=== PATIENT | male | born 1930 | race Caucasian/White ===

== ENCOUNTER 2016-08-16 12:14 | Inpatient (IN) | payer MEDICARE ==
[~2016-08-16] VITALS: Ht 175.3 cm; Wt 107.0 kg
[~2016-08-16 12:14] MED LIST: BIMA2.5D EACHEYE; BRIM5DRO3 EACHEYE; DORZ10DR3 EACHEYE; FURO-68 PO; FURO40TA4 PO; HYDR-2666 PO; ISOS30TA4 PO; LATA2.5D3 EACHEYE; LISI-338 PO; METF500T4 PO; PIOG45TA PO; PIOG45TA19 PO; POTA20TA12 PO; POTA20TA4 PO; SIMV40TA3 PO; TAMS0.4C2 PO; VIT1CAPS11 PO
[2016-08-16 14:22] LABS: BASO # 0.1 x10^3/uL (0.0-0.2); BASO % 1 % (0-3); EOS % 2 % (0-3); HEMATOCRIT 41.6 % (39.0-53.0); HEMOGLOBIN 13.8 g/dL (13.0-17.5); LYMPH # 1.1 x10^3/uL (1.0-4.8); LYMPH % 14 % (24-48); MEAN CORPUSCULAR HEMOGLOBIN 30 pg (25-35); MEAN CORPUSCULAR HGB CONC 33 g/dL (31-37); MEAN CORPUSCULAR VOLUME 91 fL (79-100); MONO % 10 % (0-9); NEUT % 73 % (31-73); PLATELET COUNT 205 x10^3/uL (140-400); RED BLOOD COUNT 4.59 x10^6/uL (4.30-5.70); RED CELL DISTRIBUTION WIDTH 14.5 % (11.5-14.5); WHITE BLOOD COUNT 7.9 x10^3/uL (4.0-11.0)
[2016-08-16 14:35] LABS: CALCIUM 9.1 mg/dL (8.5-10.1); CREATININE 1.3 mg/dL (0.7-1.3); GFR 52.2
--- NOTE | 2016-08-16 14:36 | RAD ---
Indication chest pain and shortness of air. A single view of the chest was obtained. Comparison is made to an examination 11/10/2015. There is unchanged cardiomegaly. There is no gross congestive heart failure. A focal infiltrate is not seen. Bipolar cardiac pacing device is noted. A significant change compared to the previous exam is not seen. IMPRESSION: Stable cardiomegaly. No acute finding or significant change
[2016-08-16] MEDS ORDERED: FUROSEMIDE 40 MG/4 ML VIAL IVP ONE (15:15)
[2016-08-16 15:20] VITALS: BP 152/88
--- NOTE | 2016-08-16 15:53 | PHYS DOC ---
Past Medical History Past Medical History: CHF, Diabetes-Type II, High Cholesterol Past Surgical History: Cholecystectomy, Other Additional Past Surgical Histo: KNEE REPLACEMENT Alcohol Use: Occasionally Drug Use: None Adult General Chief Complaint Chief Complaint: SHORTNESS OF BREATH [facility] HPI 85-year-old male resents with significant dyspnea that is worse in the last 3 weeks but acutely worsened today. Patient does have history of congestive heart failure. He states his shortness of breath is worse with exertional activities and not at rest. He denies any chest pain. Patient is normally on supplemental oxygen and requiring more O2 than usual today. Upon my initial assessment, the patient is in no acute distress and speaking in complete sentences. Does state he follows up with Dr. Meyers. Patient did have a pacemaker placed a months ago and states he been feeling somewhat better since that time until the last three weeks. Pt takes 80 mg of Lasix daily as well as propafenone. Review of Systems Review of Systems Constitutional: Denies fever or chills [] Eyes: Denies change in visual acuity, redness, or eye pain [] HENT: Denies nasal congestion or sore throat [] Respiratory: Denies cough, has shortness of breath [] Cardiovascular: No additional information not addressed in HPI [] GI: Denies abdominal pain, nausea, vomiting, bloody stools or diarrhea [] : Denies dysuria or hematuria [] Musculoskeletal: Denies back pain or joint pain [] Integument: Denies rash or skin lesions [] Neurologic: Denies headache, focal weakness or sensory changes [] Endocrine: Denies polyuria or polydipsia [] Allergies Allergies Allergies Coded Allergies Type Severity Reaction Last Updated Verified No Known Allergies Allergy Unknown 06/08/15 Yes Physical Exam Physical Exam Constitutional: Well developed, well nourished, no acute distress, non-toxic appearance. [] HENT: Normocephalic, atraumatic, bilateral external ears normal, oropharynx moist, no oral exudates, nose normal. [] Eyes: PERRLA, EOMI, conjunctiva normal, no discharge. [] Neck: Normal range of motion, no tenderness, supple, no stridor. [] Cardiovascular:Heart rate regular rhythm, no murmur [] Lungs & Thorax: Diminished bilaterally with no acute respiratory distress [] Abdomen: Bowel sounds normal, soft, no tenderness, no masses, no pulsatile masses. [] Skin: Warm, dry, no erythema, no rash. [] Back: No tenderness, no CVA tenderness. [] Extremities: No tenderness, no cyanosis, no clubbing, ROM intact, no edema. [] Neurologic: Alert and oriented X 3, normal motor function, normal sensory function, no focal deficits noted. [] Psychologic: Affect normal, judgement normal, mood normal. [] Current Patient Data Vital Signs Vital Signs Date Time Temp Pulse Resp B/P Pulse Ox O2 Delivery O2 Flow Rate FiO2 08/16/16 14:30 86 24 126/84 99 Room Air 08/16/16 13:00 97.5 97.5 Lab Values Laboratory Tests Test 08/16/16 14:00 White Blood Count 7.9x10^3/uL (4.0-11.0) Red Blood Count 4.59x10^6/uL (4.30-5.70) Hemoglobin 13.8g/dL (13.0-17.5) Hematocrit 41.6% (39.0-53.0) Mean Corpuscular Volume 91fL (79-100) Mean Corpuscular Hemoglobin 30pg (25-35) Mean Corpuscular Hemoglobin Concent 33g/dL (31-37) Red Cell Distribution Width 14.5% (11.5-14.5) Platelet Count 205x10^3/uL (140-400) Neutrophils (%) (Auto) 73% (31-73) Lymphocytes (%) (Auto) 14% (24-48) L Monocytes (%) (Auto) 10% (0-9) H Eosinophils (%) (Auto) 2% (0-3) Basophils (%) (Auto) 1% (0-3) Neutrophils # (Auto) 5.7x10^3uL (1.8-7.7) Lymphocytes # (Auto) 1.1x10^3/uL (1.0-4.8) Monocytes # (Auto) 0.8x10^3/uL (0.0-1.1) Eosinophils # (Auto) 0.1x10^3/uL (0.0-0.7) Basophils # (Auto) 0.1x10^3/uL (0.0-0.2) Sodium Level 141mmol/L (136-145) Potassium Level 4.0mmol/L (3.5-5.1) Chloride Level 102mmol/L (98-107) Carbon Dioxide Level 30mmol/L (21-32) Anion Gap 9 (6-14) Blood Urea Nitrogen 19mg/dL (8-26) Creatinine 1.3mg/dL (0.7-1.3) Estimated GFR (Cockcroft-Gault) 52.2 Glucose Level 140mg/dL (70-99) H Calcium Level 9.1mg/dL (8.5-10.1) Troponin I Quantitative 0.050ng/mL (0.000-0.055) BW-Ksw-Q-Type Natriuretic Peptide 3754pg/mL (0-449) H Laboratory Tests 08/16/16 14:00 Laboratory Tests 08/16/16 14:00 EKG EKG EKG is interpreted by me shows a sinus rhythm with rate 82 bpm. There does appear to be a intraventricular block. There are pacer spikes before every QRS. This EKG appears unchanged from prior EKGs and is consistent with a paced rhythm. Radiology/Procedures Radiology/Procedures One view chest as interpreted by me does not reveal an acute cardiopulmonary process. Course & Med Decision Making Course & Med Decision Making Pertinent Labs and Imaging studies reviewed. (See chart for details) This 85 yo female with ongoing shortness of breath is likely having a CHF exacerbation as demonstrated by a BNP of 3700 and he has prior history of it. His EKG and chest x-ray did not reveal any acute abnormalities. Patient was admitted to the hospitalist, Dr. Mcclure, and given a dose of IV Lasix. His case is also discussed with the spiritual care coordinator, Dr. Meyers, who agreed to see the patient in consultation at bedside. Dragon Disclaimer Dragon Disclaimer This electronic medical record was generated, in whole or in part, using a voice recognition dictation system. Departure Departure Impression: Primary Impression: CHF (congestive heart failure) Additional Impression: Dyspnea Disposition: 09 ADMITTED INPATIENT Admitting Physician: Michelle Mcclure Condition: STABLE Referrals: MICHELLE MCCLURE MD (PCP) Problem Qualifiers YESICA LOZA DO Aug 16, 2016 15:53
--- NOTE | 2016-08-16 16:20 | ACF ---
Admission Forms Criteria HEART FAILURE: COMMON COMPLICATIONS Clinical Indications for Inpatient Care (Place 'X' for any and all applicable criteria): Ongoing inpatient care may be indicated for heart failure with ANY ONE of the following (1)(2)(3)(4)(5): [ ]I. Ongoing need for care for primary condition requiring frequent therapy adjustments because of changes in cardiac function (eg, drug dosage changes for drugs that are renally metabolized) [ ]II. New-onset heart failure [ ]III. Heart failure with decreased urine output not responsive to attempts to optimize volume status [ ]IV. Acute cardiac ischemia causing or associated with failure [X]V. Complications of heart failure, including ANY ONE of the following: [ ]a) Pericardial effusion [ ]b) Symptomatic pleural effusion [ ]c) O2 saturation <90% or PO2 < 60 mm Hg (8.0 kPa) on room air or require baseline supplemental O2 [ ]d) Tachypnea [X]e) Dyspnea [ ]f) Syncope [ ]g) Change in mental status [ ]h) Acute renal insufficiency that is severe (reduction of more than 50% in estimated glomerular filtration rate from baseline) or progressive reduction of more than 25% in estimated glomerular filtration rate from baseline, with creatinine continuing to rise) [ ]i) Hemodynamic instability [ ]j) Anasarca [ ]k) Clinically significant metabolic abnormalities due to heart failure (eg, new-onset metabolic acidosis) Extended stay beyond goal length of stay for primary condition may be needed until ALL of the following are present(1)(3): [ ]a) Stable and effective diuretic regimen established (or patient on stable dialysis regimen if in chronic renal failure) [ ]b) Breathing comfortably at rest [ ]c) Saturation of arterial oxygen greater than 90% or at acceptable baseline [ ]d) Pulmonary edema absent or improved [ ]e) Hemodynamic stability [ ]f) Volume status acceptable on oral medication [ ]g) Peripheral or sacral edema absent or improved [ ]h) Renal function stable and manageable at a lower level of care [ ]i) Complications (eg, pleural effusion) resolved or manageable at a lower level of care [ ]j) Patient or caregiver has received written discharge instructions or educational material addressing activity level, diet, discharge medications, follow-up appointment, weight monitoring, and what to do if symptoms worsen The original [employer] content created by [employer] has been revised. The portions of the content which have been revised are identified through the use of italic text or in bold, and [facility] has neither reviewed nor approved the modified material.All other unmodified content is copyright [facility]. Please see references footnoted in the original [facility] edition 2016 Admission Criteria Met?: Yes QASIM MAYO Aug 16, 2016 16:20
[2016-08-16] MEDS ORDERED: FURO80TA3 PO (16:28)
[2016-08-16] MEDS ORDERED: DOCU250C PO (16:28)
[2016-08-16] MEDS ORDERED: PROP150T2 PO (16:28)
--- NOTE | 2016-08-16 17:17 | PDOC2 ---
CONSULT Date of Consult Date of Consult DATE: 08/16/16 TIME: 17:12 Reason for Consult Reason for Consult: Dyspnea Referring Physician Referring Physician: Dr. Castillo Identification/Chief Complaint Chief Complaint Dyspnea History of Present Illness Reason for Visit: Patient is a 85 year old gentleman with valvular heart disease and Cardiomyopathy with a LV EF 23%. He comes in with about 3 weeks of progressive dyspnea and increasing leg edema. No chest pains. No palpitations. Past Medical History Cardiovascular: CAD, CHF, Hyperlipidemia, Aortic stenosis, Valve insufficiency , Pulmonary hypertension, Other (pacemaker ) GI: Other Renal/: Benign prostatic enlarg. Endocrine: Diabetes Past Surgical History Past Surgical History: Cholecystectomy, Other Family History Family History: No Significant Current Problem List Problem List Problems Medical Problems: (1) CHF (congestive heart failure) Status: Acute (2) Dyspnea Status: Acute Current Medications Current Medications Current Medications Furosemide (Lasix) 40 mg 1X ONCE IVP Last administered on 08/16/16t 15:33; Start 08/16/16 at 15:15; Stop 08/16/16 at 15:16; Status DC Active Scripts Active Reported Docusate Sodium 250 Mg Capsule 200 Mg PO DAILY Propafenone Hcl 150 Mg Tablet 75 Mg PO BID Furosemide 80 Mg Tablet 80 Mg PO DAILY Lumigan (Bimatoprost) 2.5 Ml Drops 1 Drop EACHEYE QHS Potassium Chloride 20 Meq Tab.er.prt 1 Tab PO BID Simvastatin 40 Mg Tablet 40 Mg PO HS Dorzolamide Hcl 10 Ml Drops 1 Drop EACHEYE BID Alphagan P (Brimonidine Tartrate) 5 Ml Drops 1 Drop EACHEYE BID Allergies Allergies: Coded Allergies: No Known Allergies (Verified Allergy, Unknown, 06/08/15) Physical Exam General: Alert, Oriented X3, Cooperative HEENT: PERRLA Lungs: Other (basal rales , mild wheezing) Heart: Regular rate, Other (S1,S2 +S3, No change in murmur) Abdomen: Normal bowel sounds Extremities: Other (++ edema) Vitals VITALS Vital Signs Date Time Temp Pulse Resp B/P Pulse Ox O2 Delivery O2 Flow Rate FiO2 08/16/16 15:20 97.8 81 16 152/88 99 Room Air 97.8 Labs Labs Laboratory Tests Test 08/16/16 14:00 White Blood Count 7.9x10^3/uL (4.0-11.0) Red Blood Count 4.59x10^6/uL (4.30-5.70) Hemoglobin 13.8g/dL (13.0-17.5) Hematocrit 41.6% (39.0-53.0) Mean Corpuscular Volume 91fL (79-100) Mean Corpuscular Hemoglobin 30pg (25-35) Mean Corpuscular Hemoglobin Concent 33g/dL (31-37) Red Cell Distribution Width 14.5% (11.5-14.5) Platelet Count 205x10^3/uL (140-400) Neutrophils (%) (Auto) 73% (31-73) Lymphocytes (%) (Auto) 14% (24-48) Monocytes (%) (Auto) 10% (0-9) Eosinophils (%) (Auto) 2% (0-3) Basophils (%) (Auto) 1% (0-3) Neutrophils # (Auto) 5.7x10^3uL (1.8-7.7) Lymphocytes # (Auto) 1.1x10^3/uL (1.0-4.8) Monocytes # (Auto) 0.8x10^3/uL (0.0-1.1) Eosinophils # (Auto) 0.1x10^3/uL (0.0-0.7) Basophils # (Auto) 0.1x10^3/uL (0.0-0.2) Sodium Level 141mmol/L (136-145) Potassium Level 4.0mmol/L (3.5-5.1) Chloride Level 102mmol/L (98-107) Carbon Dioxide Level 30mmol/L (21-32) Anion Gap 9 (6-14) Blood Urea Nitrogen 19mg/dL (8-26) Creatinine 1.3mg/dL (0.7-1.3) Estimated GFR (Cockcroft-Gault) 52.2 Glucose Level 140mg/dL (70-99) Calcium Level 9.1mg/dL (8.5-10.1) Troponin I Quantitative 0.050ng/mL (0.000-0.055) MS-Irt-M-Type Natriuretic Peptide 3754pg/mL (0-449) Laboratory Tests Test 08/16/16 14:00 White Blood Count 7.9x10^3/uL (4.0-11.0) Red Blood Count 4.59x10^6/uL (4.30-5.70) Hemoglobin 13.8g/dL (13.0-17.5) Hematocrit 41.6% (39.0-53.0) Mean Corpuscular Volume 91fL (79-100) Mean Corpuscular Hemoglobin 30pg (25-35) Mean Corpuscular Hemoglobin Concent 33g/dL (31-37) Red Cell Distribution Width 14.5% (11.5-14.5) Platelet Count 205x10^3/uL (140-400) Neutrophils (%) (Auto) 73% (31-73) Lymphocytes (%) (Auto) 14% (24-48) Monocytes (%) (Auto) 10% (0-9) Eosinophils (%) (Auto) 2% (0-3) Basophils (%) (Auto) 1% (0-3) Neutrophils # (Auto) 5.7x10^3uL (1.8-7.7) Lymphocytes # (Auto) 1.1x10^3/uL (1.0-4.8) Monocytes # (Auto) 0.8x10^3/uL (0.0-1.1) Eosinophils # (Auto) 0.1x10^3/uL (0.0-0.7) Basophils # (Auto) 0.1x10^3/uL (0.0-0.2) Sodium Level 141mmol/L (136-145) Potassium Level 4.0mmol/L (3.5-5.1) Chloride Level 102mmol/L (98-107) Carbon Dioxide Level 30mmol/L (21-32) Anion Gap 9 (6-14) Blood Urea Nitrogen 19mg/dL (8-26) Creatinine 1.3mg/dL (0.7-1.3) Estimated GFR (Cockcroft-Gault) 52.2 Glucose Level 140mg/dL (70-99) Calcium Level 9.1mg/dL (8.5-10.1) Troponin I Quantitative 0.050ng/mL (0.000-0.055) HR-Dat-U-Type Natriuretic Peptide 3754pg/mL (0-449) Assessment/Plan Assessment/Plan Patient with acute CHF secondary to systolic dysfunction and valvular disease. Recommend diuresis and a dobutamine drip. Will get an echocardiogram in am to evaluate changes in LV function. Thank you very much for allowing me to participate in the care of this patient. ANTONIA ROBERT MD Aug 16, 2016 17:17
--- NOTE | 2016-08-16 17:36 | EKG ---
[facility] [address] [place] [address] Test Date: 2016-08-16 Test Time: 14:47:56 Pat Name: LEONIDAS ROBERT Department: Room: 248 1 Gender: Male Practice Architect: : [id number] Requested By: YESICA LOZA Order Number: [id number] Reading MD: Mikala Thomas Measurements Intervals [place] Rate: 94 P: IA: QRS: -93 QRSD: 220 T: 55 QT: 416 QTc: 520 Interpretive Statements SINUS RHYTHM ABNORMAL RIGHT SUPERIOR AXIS DEVIATION NON SPECIFIC INTRAVENTRICULAR BLOCK QRS(T) CONTOUR ABNORMALITY CONSISTENT WITH ANTEROSEPTAL INFARCT POSSIBLY RECENT CONSISTENT WITH INFERIOR INFARCT PROBABLY OLD ABNORMAL ECG Electronically Signed On 08-19-2016 18:12:07 ADJUNCT FACULTY by Mikala Thomas
[2016-08-16] MEDS: POTASSIUM CHLORIDE 20 MEQ TABLET.ER. PO SCH (17:45)
[2016-08-16] MEDS: DOBUTAMINE 500MG/250ML PREMIX 250 ML IV PRN (17:58)
[2016-08-16 19:55] VITALS: BP 111/52
[2016-08-16 21:00] VITALS: BP 109/52
[2016-08-16] MEDS: LATANOPROST 0.005% OPHTH SOLUTION 2.5ML BOTTLE. OU SCH (21:00)
[2016-08-16] MEDS: DORZOLAMIDE 2% OPHTH SOLUTION 10ML BOTTLE. OU SCH (21:00)
[2016-08-16] MEDS: BRIMONIDINE 0.2% OPHTH SOLUTION 5ML BOTTLE. OU SCH (21:00)
[2016-08-16] MEDS ORDERED: FUROSEMIDE 40 MG/4 ML VIAL IVP SCH (21:00)
[2016-08-16] MEDS: PROPAFENONE 150 MG TABLET. PO SCH (21:05)
[2016-08-16 22:00] VITALS: BP 102/55
[2016-08-16 23:00] VITALS: BP 119/55
[2016-08-16 23:50] VITALS: BP 104/55
[2016-08-17] VITALS (11 sets, daily range): BP systolic 99–128; BP diastolic 53–59
[2016-08-17] MEDS: FUROSEMIDE 40 MG/4 ML VIAL IVP SCH ×2 (08:37→21:08)
[2016-08-17] MEDS: POTASSIUM CHLORIDE 20 MEQ TABLET.ER. PO SCH ×2 (08:38→17:00)
[2016-08-17] MEDS: DOCUSATE SODIUM 100 MG CAPSULE PO SCH (08:38)
[2016-08-17] MEDS: PROPAFENONE 150 MG TABLET. PO SCH ×2 (08:39→21:09)
[2016-08-17] MEDS: BRIMONIDINE 0.2% OPHTH SOLUTION 5ML BOTTLE. OU SCH ×2 (08:45→21:08)
[2016-08-17] MEDS: DORZOLAMIDE 2% OPHTH SOLUTION 10ML BOTTLE. OU SCH ×2 (08:45→21:08)
--- NOTE | 2016-08-17 09:39 | PDOC ---
PROGRESS NOTES Subjective Subjective Patient reports that he is feeling improved today and his shortness of breath is better although he admits he has not been out of bed much. No new cardiac complaints. Objective Objective Vital Signs Date Time Temp Pulse Resp B/P Pulse Ox O2 Delivery O2 Flow Rate FiO2 08/17/16 08:39 92 120/59 08/17/16 08:00 Room Air 08/17/16 07:00 20 97 08/16/16 23:50 97.3 97.3 Intake and Output 08/17/16 07:00 Intake Total 1074 ml Output Total 1275 ml Balance -201 ml Intake Oral 890 ml IV Total 184 ml Output Urine Total 1275 ml Physical Exam Abdomen: Normal bowel sounds Heart: Regular rate, Normal S1, Normal S2, Other (S3 with no change in murmur) Extremities: Other (edema of upper and lower extremities slightly improved, some desquamation of skin on forearms bilaterally) General: Alert, Oriented X3, Cooperative, No acute distress Lungs: Other (mild rales in bases, wheezing slightly improved, CPAP mask in place) Neck: No JVD Neuro: Other (no gross focal deficits) Assessment Assessment Patient admitted for progressive shortness of breath due to acute CHF exacerbation secondary to systolic and valvular dysfunction with EF of 23%. Patient is improving on current therapy. Problems Medical Problems: (1) CHF (congestive heart failure) Status: Acute (2) Dyspnea Status: Acute Plan Plan of Care Will continue with dobutamine drip and oral lasix for now. Will reassess after echo is completed later today. Thank you for including me in the care of this patient. Comment Review of Relevant I have reviewed the following items chantal (where applicable) has been applied. Labs Laboratory Tests Test 08/16/16 14:00 White Blood Count 7.9x10^3/uL (4.0-11.0) Red Blood Count 4.59x10^6/uL (4.30-5.70) Hemoglobin 13.8g/dL (13.0-17.5) Hematocrit 41.6% (39.0-53.0) Mean Corpuscular Volume 91fL (79-100) Mean Corpuscular Hemoglobin 30pg (25-35) Mean Corpuscular Hemoglobin Concent 33g/dL (31-37) Red Cell Distribution Width 14.5% (11.5-14.5) Platelet Count 205x10^3/uL (140-400) Neutrophils (%) (Auto) 73% (31-73) Lymphocytes (%) (Auto) 14% (24-48) Monocytes (%) (Auto) 10% (0-9) Eosinophils (%) (Auto) 2% (0-3) Basophils (%) (Auto) 1% (0-3) Neutrophils # (Auto) 5.7x10^3uL (1.8-7.7) Lymphocytes # (Auto) 1.1x10^3/uL (1.0-4.8) Monocytes # (Auto) 0.8x10^3/uL (0.0-1.1) Eosinophils # (Auto) 0.1x10^3/uL (0.0-0.7) Basophils # (Auto) 0.1x10^3/uL (0.0-0.2) Sodium Level 141mmol/L (136-145) Potassium Level 4.0mmol/L (3.5-5.1) Chloride Level 102mmol/L (98-107) Carbon Dioxide Level 30mmol/L (21-32) Anion Gap 9 (6-14) Blood Urea Nitrogen 19mg/dL (8-26) Creatinine 1.3mg/dL (0.7-1.3) Estimated GFR (Cockcroft-Gault) 52.2 Glucose Level 140mg/dL (70-99) Calcium Level 9.1mg/dL (8.5-10.1) Troponin I Quantitative 0.050ng/mL (0.000-0.055) OZ-Jko-L-Type Natriuretic Peptide 3754pg/mL (0-449) Laboratory Tests Test 08/16/16 14:00 White Blood Count 7.9x10^3/uL (4.0-11.0) Red Blood Count 4.59x10^6/uL (4.30-5.70) Hemoglobin 13.8g/dL (13.0-17.5) Hematocrit 41.6% (39.0-53.0) Mean Corpuscular Volume 91fL (79-100) Mean Corpuscular Hemoglobin 30pg (25-35) Mean Corpuscular Hemoglobin Concent 33g/dL (31-37) Red Cell Distribution Width 14.5% (11.5-14.5) Platelet Count 205x10^3/uL (140-400) Neutrophils (%) (Auto) 73% (31-73) Lymphocytes (%) (Auto) 14% (24-48) Monocytes (%) (Auto) 10% (0-9) Eosinophils (%) (Auto) 2% (0-3) Basophils (%) (Auto) 1% (0-3) Neutrophils # (Auto) 5.7x10^3uL (1.8-7.7) Lymphocytes # (Auto) 1.1x10^3/uL (1.0-4.8) Monocytes # (Auto) 0.8x10^3/uL (0.0-1.1) Eosinophils # (Auto) 0.1x10^3/uL (0.0-0.7) Basophils # (Auto) 0.1x10^3/uL (0.0-0.2) Sodium Level 141mmol/L (136-145) Potassium Level 4.0mmol/L (3.5-5.1) Chloride Level 102mmol/L (98-107) Carbon Dioxide Level 30mmol/L (21-32) Anion Gap 9 (6-14) Blood Urea Nitrogen 19mg/dL (8-26) Creatinine 1.3mg/dL (0.7-1.3) Estimated GFR (Cockcroft-Gault) 52.2 Glucose Level 140mg/dL (70-99) Calcium Level 9.1mg/dL (8.5-10.1) Troponin I Quantitative 0.050ng/mL (0.000-0.055) ZS-Ovc-Z-Type Natriuretic Peptide 3754pg/mL (0-449) Medications Current Medications Furosemide 40 mg 40 mg 1X ONCE IVP Last administered on 08/16/16 15:33; Start 08/16/16 at 15:15; Stop 08/16/16 at 15:16; Status DC Dobutamine HCl/ Dextrose 250 ml @ 0 mls/hr CONT PRN IV SEE I/O RECORD Last administered on 08/16/16 17:58; Start 08/16/16 at 17:15 Furosemide (Lasix) 40 mg Q12HR IVP ; Start 08/16/16 at 21:00; Stop 08/16/16 at 21: 00; Status DC Dorzolamide HCl (Trusopt) 1 drop BID OU Last administered on 08/17/16 08:45; Start 08/16/16 at 21:00 Furosemide (Lasix) 80 mg DAILY PO ; Start 08/20/16 at 09:00 Potassium Chloride (Klor-Con) 20 meq BIDWMEALS PO Last administered on 08:38; Start 08/16/16 at 18:00 Propafenone HCl (Rythmol) 75 mg BID PO Last administered on 08/17/16 08:39; Start 08/16/16 at 21:00 Latanoprost (Xalatan) 1 drop QHS OU Last administered on 08/16/16 21:00; Start 08/16/16 at 21:00 Brimonidine Tartrate (Alphagan) 1 drop BID OU Last administered on 08/17/16 08 :45; Start 08/16/16 at 21:00 Docusate Sodium (Colace) 200 mg DAILY PO Last administered on 08/17/16 08:38; Start 08/17/16 at 09:00 Furosemide (Lasix) 40 mg Q12HR IVP Last administered on 08/17/16 08:37; Start 08/17/16 at 09:00; Stop 08/19/16 at 09:00 Active Scripts Active Reported Docusate Sodium 250 Mg Capsule 200 Mg PO DAILY Propafenone Hcl 150 Mg Tablet 75 Mg PO BID Furosemide 80 Mg Tablet 80 Mg PO DAILY Lumigan (Bimatoprost) 2.5 Ml Drops 1 Drop EACHEYE QHS Potassium Chloride 20 Meq Tab.er.prt 1 Tab PO BID Simvastatin 40 Mg Tablet 40 Mg PO HS Dorzolamide Hcl 10 Ml Drops 1 Drop EACHEYE BID Alphagan P (Brimonidine Tartrate) 5 Ml Drops 1 Drop EACHEYE BID Vitals/I & O Vital Sign - Last 24 Hours 08/16/16 08/16/16 08/16/16 08/16/16 13:00 14:00 14:30 14:52 Temp 97.5 97.5 Pulse 94 76 86 76 Resp 23 21 24 16 B/P 128/74 115/71 126/84 142/79 Pulse Ox 98 96 99 98 O2 Delivery Room Air Room Air Room Air Room Air 08/16/16 08/16/16 08/16/16 08/16/16 15:20 15:30 18:12 19:55 Temp 97.8 98.7 97.8 98.7 Pulse 81 88 Resp 16 23 20 B/P 152/88 123/69 111/52 Pulse Ox 99 97 O2 Delivery Room Air Room Air Room Air Room Air 08/16/16 08/16/16 08/16/16 08/16/16 20:20 21:00 21:05 22:00 Pulse 92 89 84 B/P 109/52 109/52 102/55 O2 Delivery Room Air 08/16/16 08/16/16 08/17/16 08/17/16 23:00 23:50 01:00 02:00 Temp 97.3 97.3 Pulse 76 76 72 88 Resp 20 B/P 119/55 104/55 106/53 120/57 Pulse Ox 98 O2 Delivery Room Air 08/17/16 08/17/16 08/17/16 08/17/16 03:00 04:00 05:00 06:00 Pulse 86 86 86 68 Resp 20 B/P 109/56 128/56 111/55 114/55 O2 Delivery BiPAP/CPAP 08/17/16 08/17/16 08/17/16 07:00 08:00 08:39 Pulse 92 92 Resp 20 B/P 120/59 120/59 Pulse Ox 97 O2 Delivery Room Air Room Air Intake and Output 08/16/16 08/16/16 08/17/16 15:00 23:00 07:00 Intake Total 240 ml 834 ml Output Total 975 ml 300 ml Balance -735 ml 534 ml ANTONIA ROBERT MD Aug 17, 2016 09:39
--- NOTE | 2016-08-17 09:52 | PDOC ---
PROGRESS NOTES Subjective Subjective Pt awake and pleasant. States his SOB has improved some, but continues with exertion. Objective Objective Pt awake and alert. NAD at rest. VSS. Afebrile. Lungs CTA bilat. Resp even and unlabored. Pt currently off of RA, maintaining his sats. Heart with RRR. No murmurs. Rate paced. Vital Signs Date Time Temp Pulse Resp B/P Pulse Ox O2 Delivery O2 Flow Rate FiO2 08/17/16 08:39 92 120/59 08/17/16 08:00 Room Air 08/17/16 07:00 20 97 08/16/16 23:50 97.3 97.3 Intake and Output 08/17/16 07:00 Intake Total 1074 ml Output Total 1275 ml Balance -201 ml Intake Oral 890 ml IV Total 184 ml Output Urine Total 1275 ml Assessment Assessment Problems Medical Problems: (1) CHF (congestive heart failure) Status: Acute (2) Dyspnea Status: Acute Plan Plan of Care 1. CHF with cardiomyopathy -BNP 3754 -CXR: Stable cardiomegaly. No acute finding or significant change -Cardiology consulting -Pt on Dobutamine gtt -Lasix 40mg IVP q12h -O>I -Pacemaker placement 1 month ago. Med hx: DM, Dyslipidemia, BPH, depression. Comment Review of Relevant I have reviewed the following items chantal (where applicable) has been applied. Labs Laboratory Tests Test 08/16/16 14:00 White Blood Count 7.9x10^3/uL (4.0-11.0) Red Blood Count 4.59x10^6/uL (4.30-5.70) Hemoglobin 13.8g/dL (13.0-17.5) Hematocrit 41.6% (39.0-53.0) Mean Corpuscular Volume 91fL (79-100) Mean Corpuscular Hemoglobin 30pg (25-35) Mean Corpuscular Hemoglobin Concent 33g/dL (31-37) Red Cell Distribution Width 14.5% (11.5-14.5) Platelet Count 205x10^3/uL (140-400) Neutrophils (%) (Auto) 73% (31-73) Lymphocytes (%) (Auto) 14% (24-48) Monocytes (%) (Auto) 10% (0-9) Eosinophils (%) (Auto) 2% (0-3) Basophils (%) (Auto) 1% (0-3) Neutrophils # (Auto) 5.7x10^3uL (1.8-7.7) Lymphocytes # (Auto) 1.1x10^3/uL (1.0-4.8) Monocytes # (Auto) 0.8x10^3/uL (0.0-1.1) Eosinophils # (Auto) 0.1x10^3/uL (0.0-0.7) Basophils # (Auto) 0.1x10^3/uL (0.0-0.2) Sodium Level 141mmol/L (136-145) Potassium Level 4.0mmol/L (3.5-5.1) Chloride Level 102mmol/L (98-107) Carbon Dioxide Level 30mmol/L (21-32) Anion Gap 9 (6-14) Blood Urea Nitrogen 19mg/dL (8-26) Creatinine 1.3mg/dL (0.7-1.3) Estimated GFR (Cockcroft-Gault) 52.2 Glucose Level 140mg/dL (70-99) Calcium Level 9.1mg/dL (8.5-10.1) Troponin I Quantitative 0.050ng/mL (0.000-0.055) SW-Owt-W-Type Natriuretic Peptide 3754pg/mL (0-449) Laboratory Tests Test 08/16/16 14:00 White Blood Count 7.9x10^3/uL (4.0-11.0) Red Blood Count 4.59x10^6/uL (4.30-5.70) Hemoglobin 13.8g/dL (13.0-17.5) Hematocrit 41.6% (39.0-53.0) Mean Corpuscular Volume 91fL (79-100) Mean Corpuscular Hemoglobin 30pg (25-35) Mean Corpuscular Hemoglobin Concent 33g/dL (31-37) Red Cell Distribution Width 14.5% (11.5-14.5) Platelet Count 205x10^3/uL (140-400) Neutrophils (%) (Auto) 73% (31-73) Lymphocytes (%) (Auto) 14% (24-48) Monocytes (%) (Auto) 10% (0-9) Eosinophils (%) (Auto) 2% (0-3) Basophils (%) (Auto) 1% (0-3) Neutrophils # (Auto) 5.7x10^3uL (1.8-7.7) Lymphocytes # (Auto) 1.1x10^3/uL (1.0-4.8) Monocytes # (Auto) 0.8x10^3/uL (0.0-1.1) Eosinophils # (Auto) 0.1x10^3/uL (0.0-0.7) Basophils # (Auto) 0.1x10^3/uL (0.0-0.2) Sodium Level 141mmol/L (136-145) Potassium Level 4.0mmol/L (3.5-5.1) Chloride Level 102mmol/L (98-107) Carbon Dioxide Level 30mmol/L (21-32) Anion Gap 9 (6-14) Blood Urea Nitrogen 19mg/dL (8-26) Creatinine 1.3mg/dL (0.7-1.3) Estimated GFR (Cockcroft-Gault) 52.2 Glucose Level 140mg/dL (70-99) Calcium Level 9.1mg/dL (8.5-10.1) Troponin I Quantitative 0.050ng/mL (0.000-0.055) ES-Lno-X-Type Natriuretic Peptide 3754pg/mL (0-449) Medications Current Medications Furosemide 40 mg 40 mg 1X ONCE IVP Last administered on 08/16/16 15:33; Start 08/16/16 at 15:15; Stop 08/16/16 at 15:16; Status DC Dobutamine HCl/ Dextrose 250 ml @ 0 mls/hr CONT PRN IV SEE I/O RECORD Last administered on 08/16/16 17:58; Start 08/16/16 at 17:15 Furosemide (Lasix) 40 mg Q12HR IVP ; Start 08/16/16 at 21:00; Stop 08/16/16 at 21: 00; Status DC Dorzolamide HCl (Trusopt) 1 drop BID OU Last administered on 08/17/16 08:45; Start 08/16/16 at 21:00 Furosemide (Lasix) 80 mg DAILY PO ; Start 08/20/16 at 09:00 Potassium Chloride (Klor-Con) 20 meq BIDWMEALS PO Last administered on 08:38; Start 08/16/16 at 18:00 Propafenone HCl (Rythmol) 75 mg BID PO Last administered on 08/17/16 08:39; Start 08/16/16 at 21:00 Latanoprost (Xalatan) 1 drop QHS OU Last administered on 08/16/16 21:00; Start 08/16/16 at 21:00 Brimonidine Tartrate (Alphagan) 1 drop BID OU Last administered on 08/17/16 08 :45; Start 08/16/16 at 21:00 Docusate Sodium (Colace) 200 mg DAILY PO Last administered on 08/17/16 08:38; Start 08/17/16 at 09:00 Furosemide (Lasix) 40 mg Q12HR IVP Last administered on 08/17/16 08:37; Start 08/17/16 at 09:00; Stop 08/19/16 at 09:00 Active Scripts Active Reported Docusate Sodium 250 Mg Capsule 200 Mg PO DAILY Propafenone Hcl 150 Mg Tablet 75 Mg PO BID Furosemide 80 Mg Tablet 80 Mg PO DAILY Lumigan (Bimatoprost) 2.5 Ml Drops 1 Drop EACHEYE QHS Potassium Chloride 20 Meq Tab.er.prt 1 Tab PO BID Simvastatin 40 Mg Tablet 40 Mg PO HS Dorzolamide Hcl 10 Ml Drops 1 Drop EACHEYE BID Alphagan P (Brimonidine Tartrate) 5 Ml Drops 1 Drop EACHEYE BID Vitals/I & O Vital Sign - Last 24 Hours 08/16/16 08/16/16 08/16/16 08/16/16 13:00 14:00 14:30 14:52 Temp 97.5 97.5 Pulse 94 76 86 76 Resp 23 21 24 16 B/P 128/74 115/71 126/84 142/79 Pulse Ox 98 96 99 98 O2 Delivery Room Air Room Air Room Air Room Air 08/16/16 08/16/16 08/16/16 08/16/16 15:20 15:30 18:12 19:55 Temp 97.8 98.7 97.8 98.7 Pulse 81 88 Resp 16 23 20 B/P 152/88 123/69 111/52 Pulse Ox 99 97 O2 Delivery Room Air Room Air Room Air Room Air 08/16/16 08/16/16 08/16/16 08/16/16 20:20 21:00 21:05 22:00 Pulse 92 89 84 B/P 109/52 109/52 102/55 O2 Delivery Room Air 08/16/16 08/16/16 08/17/16 08/17/16 23:00 23:50 01:00 02:00 Temp 97.3 97.3 Pulse 76 76 72 88 Resp 20 B/P 119/55 104/55 106/53 120/57 Pulse Ox 98 O2 Delivery Room Air 08/17/16 08/17/16 08/17/16 08/17/16 03:00 04:00 05:00 06:00 Pulse 86 86 86 68 Resp 20 B/P 109/56 128/56 111/55 114/55 O2 Delivery BiPAP/CPAP 08/17/16 08/17/16 08/17/16 07:00 08:00 08:39 Pulse 92 92 Resp 20 B/P 120/59 120/59 Pulse Ox 97 O2 Delivery Room Air Room Air Intake and Output 08/16/16 08/16/16 08/17/16 15:00 23:00 07:00 Intake Total 240 ml 834 ml Output Total 975 ml 300 ml Balance -735 ml 534 ml MICHELLE MCCLURE MD Aug 17, 2016 09:52
[2016-08-17] MEDS: DOBUTAMINE 500MG/250ML PREMIX 250 ML IV PRN ×2 (11:49→23:17)
--- NOTE | 2016-08-17 16:51 | CARD ---
APPROVED REPORT EXAM: Two-dimensional and M-mode echocardiogram with Doppler and color Doppler. Other Information Quality : Good INDICATION Congestive Heart Failure Surgery/Intervention Pacemaker: 2D DIMENSIONS RVDd2.7 (2.9-3.5cm)Left Atrium(2D)4.8 (1.6-4.0cm) IVSd1.5 (0.7-1.1cm)Aortic Root(2D)2.9 (2.0-3.7cm) LVDd6.5 (3.9-5.9cm)LVOT Diameter2.3 (1.8-2.4cm) PWd1.2 (0.7-1.1cm)LVDs5.5 (2.5-4.0cm) FS (%) 15.6 %SV69.7 ml LVEF(%)25.0 (>50%) M-Mode DIMENSIONS Aortic Cusp Exc1.24 (1.5-2.0cm) Aortic Valve AoV Peak Nicholas.252.3cm/sAoV VTI46.5cm AO Peak GR.25.5mmHgLVOT VTI 13.58cm AO Mean GR.17mmHgAVA (VTI)1.20cm2 Mitral Valve MV E Aithtrwt46.3cm/sMV DECEL ZNPH592ky MV A Jqutrjhs33.8cm/sE/A Ratio1.3 TDI Lateral E' P. V12.68cm/sMedial E' P. V3.02cm/s E/Lateral E'7.7E/Medial E'32.2 Tricuspid Valve TR P. Devniebm201ne/sRAP RCTWJEGD4ghTb TR Peak Gr.95wqWaPYPK47tlRz Pulmonary Vein S1 Okboagpc36.3cm/sS2 Jvyhmrhf55.43cm/s D2 Drupsbdq00.4cm/sPVa ztzasbfi24ynwd LEFT VENTRICLE The Left Ventricle is mildly dilated. There is mild to moderate concentric left ventricular hypertrop hy. Left ventricle systolic function is moderately to severely impaired. The Ejection Fraction is 25% . There is akinesis in the inferior wall. There is severe global hypokinesis of the left ventricle. S eptal motion consistent with pacemaker activation. RIGHT VENTRICLE The right ventricle is normal size. The right ventricular systolic function is normal. There is a pac emaker lead in the right ventricle. ATRIA The left atrium is mildly dilated. The right atrium is mildly dilated. A pacemaker is seen in the rig ht atrium consistent with history. The interatrial septum is intact with no evidence for an atrial se ptal defect or patent foramen ovale as noted on 2-D or Doppler imaging. AORTIC VALVE The aortic valve is calcified and displays decreased opening. Doppler and Color Flow revealed trace t o mild to moderate aortic regurgitation. The continous wave doppler showed a maximum pressure gradien t of 25 mmHg and mean pressure gradient of 17 mmHg for the aortic valve Doppler and color-flow analys is revealed mild aortic stenosis. MITRAL VALVE The mitral valve is normal in structure There is no evidence of mitral valve prolapse. There is no mi tral valve stenosis. Doppler and Color-flow revealed mild to moderate mitral regurgitation. TRICUSPID VALVE The tricuspid valve is normal in structure Doppler and Color Flow revealed moderate tricuspid regurgi tation. There is severe pulmonary hypertension. The PA pressure was estimated at 64 mmHg. There is no tricuspid valve stenosis. PULMONIC VALVE The pulmonary valve is normal in structure Doppler and Color Flow revealed mild pulmonic valvular reg urgitation. There is no pulmonic valvular stenosis. GREAT VESSELS The aortic root is normal in size. The ascending aorta is normal in size. The IVC was not visualized. PERICARDIAL EFFUSION There is no evidence of significant pericardial effusion. Critical Notification Critical Value: No <Conclusion> Left ventricle systolic function is moderately to severely impaired. The Ejection Fraction is 25%. There is mild to moderate concentric left ventricular hypertrophy. The left atrium is mildly dilated. The right atrium is mildly dilated. A pacemaker is seen in the right atrium consistent with history. The continous wave doppler showed a maximum pressure gradient of 25 mmHg and mean pressure gradient o f 17 mmHg for the aortic valve Doppler and color-flow analysis revealed mild aortic stenosis. Doppler and Color Flow revealed trace to mild to moderate aortic regurgitation. Doppler and Color-flow revealed mild to moderate mitral regurgitation. Doppler and Color Flow revealed moderate tricuspid regurgitation. There is severe pulmonary hypertension. The PA pressure was estimated at 64 mmHg. Doppler and Color Flow revealed mild pulmonic valvular regurgitation. There is no evidence of significant pericardial effusion.
[2016-08-17] MEDS: LATANOPROST 0.005% OPHTH SOLUTION 2.5ML BOTTLE. OU SCH (21:08)
--- NOTE | 2016-08-18 01:34 | HP ---
ADMIT DATE: 08/16/2016 Verónica Hollingsworth APRN dictating on behalf of Dr. Michelle Castillo. CHIEF COMPLAINT AND HISTORY OF PRESENT ILLNESS: This is an 85-year-old male who is well known to me from followup in the office. The patient presented to the Emergency Room on the date of admission with complaints of worsening shortness of breath and increased supplemental O2 demand. The patient stated that his symptoms began about 3 weeks ago and acutely worsened the day he presented to the Emergency Room. Upon examination in the Emergency Room EKG and chest x-ray showed no acute abnormalities. A chest x-ray did show a cardiomegaly which is consistent from previous chest x-rays. The BNP in the ER was 3700. Dr. Meyers, the patient's cardiovascular lab director was consulted and it was felt that the patient be admitted to the hospital. PAST MEDICAL HISTORY: The patient with pacemaker placement for bradycardia one month ago. The patient has known CHF, diabetes type 2, dyslipidemia, BPH, depression, and arthrosclerotic heart disease. PAST SURGICAL HISTORY: Cholecystectomy and a knee replacement. MEDICATIONS: Medications were brought with the patient, listed on the computer and have been addressed. ALLERGIES: The patient has no known drug allergies. SOCIAL HISTORY: The patient is a nonsmoker and drinks alcohol only on occasion socially. He does not use illicit drugs. The patient is and lives at home with his . He is retired from the railroad. FAMILY HISTORY: Noncontributory. REVIEW OF SYSTEMS: As mentioned above. PHYSICAL EXAMINATION: GENERAL: He is a well-developed and well-nourished white male who is in no apparent distress the morning of my examination. VITAL SIGNS: Stable. He is currently on room air, not requiring supplemental O2 and maintaining his sat greater than 92%. HEENT: Head, eyes, ears, nose and throat are unremarkable. He does wear eyeglasses. NECK: Supple, without lymphadenopathy or thyromegaly. CHEST: Clear to auscultation and percussion. HEART: Regular rate and rhythm without S3, S4 or murmur, rate is paced. ABDOMEN: Soft and nontender, without hepatosplenomegaly or masses. EXTREMITIES: Without cyanosis, clubbing. The patient does have 1-2+ pitting edema of the lower extremities. NEUROLOGIC: He is intact. IMPRESSION: Congestive heart failure with underlying cardiomegaly. PLAN: The patient has been admitted. Cardiology has been consulted. The patient has been placed on a dobutamine drip as well as Lasix 40 mg IV push q. 12 hours. We will continue to monitor the patient closely and treat him appropriately during his hospitalization. MICHELLE CASTILLO MD DR: DILLON/bong JOB#: [id number] / [id number]
[2016-08-18 03:23] VITALS: BP 114/57
[2016-08-18 05:20] LABS: CALCIUM 8.6 mg/dL (8.5-10.1); CREATININE 1.1 mg/dL (0.7-1.3); GFR 63.3; POTASSIUM 3.3 mmol/L (3.5-5.1)
[2016-08-18 07:25] VITALS: BP 108/60
[2016-08-18] MEDS: POTASSIUM CHLORIDE 20 MEQ TABLET.ER. PO SCH ×2 (08:42→18:26)
[2016-08-18] MEDS: DOCUSATE SODIUM 100 MG CAPSULE PO SCH (08:43)
[2016-08-18] MEDS: PROPAFENONE 150 MG TABLET. PO SCH ×2 (08:48→20:53)
[2016-08-18] MEDS: BRIMONIDINE 0.2% OPHTH SOLUTION 5ML BOTTLE. OU SCH ×2 (08:48→20:51)
[2016-08-18] MEDS: DORZOLAMIDE 2% OPHTH SOLUTION 10ML BOTTLE. OU SCH ×2 (08:48→20:51)
[2016-08-18] MEDS: FUROSEMIDE 40 MG/4 ML VIAL IVP SCH ×2 (08:56→20:53)
[2016-08-18 11:00] VITALS: BP 144/61
--- NOTE | 2016-08-18 13:27 | PDOC ---
SUBJECTIVE Subjective pleasant, feels better OBJECTIVE Vital Signs Vital Signs Date Time Temp Pulse Resp B/P Pulse Ox O2 Delivery O2 Flow Rate FiO2 08/18/16 11:00 97.7 98 20 144/61 97 Room Air 97.7 08/18/16 08:48 96 108/60 08/18/16 08:00 Room Air 08/18/16 07:25 97.2 92 108/60 97 BiPAP/CPAP 97.2 08/18/16 03:23 97.1 91 22 114/57 97 BiPAP/CPAP 97.1 08/17/16 23:25 97.1 82 22 125/57 95 BiPAP/CPAP 97.1 08/17/16 21:09 90 111/55 08/17/16 19:45 97.7 90 23 111/55 96 Room Air 97.7 08/17/16 19:30 Room Air 08/17/16 15:00 97.8 94 20 99/53 96 Room Air 97.8 I & O Intake and Output 08/18/16 07:00 Intake Total 888 ml Output Total 1540 ml Balance -652 ml Intake Oral 500 ml IV Total 388 ml Output Urine Total 1540 ml PHYSICAL EXAM Physical Exam lungs clear heart irreg abd soft ext no edema ASSESSMENT/PLAN Assessment/Plan 1. CHF with cardiomyopathy better 2. DM, 3.Dyslipidemia, 4. BPH, 5.depression. Problems: COMMENT Lab Laboratory Tests Test 08/18/16 04:20 Sodium Level 142mmol/L (136-145) Potassium Level 3.3mmol/L (3.5-5.1) Chloride Level 104mmol/L (98-107) Carbon Dioxide Level 30mmol/L (21-32) Anion Gap 8 (6-14) Blood Urea Nitrogen 15mg/dL (8-26) Creatinine 1.1mg/dL (0.7-1.3) Estimated GFR (Cockcroft-Gault) 63.3 Glucose Level 129mg/dL (70-99) Calcium Level 8.6mg/dL (8.5-10.1) THERESA PEDRO MD Aug 18, 2016 13:27
[2016-08-18] MEDS ORDERED: POTASSIUM CHLORIDE 20 MEQ TABLET.ER. PO ONE (13:30)
--- NOTE | 2016-08-18 14:03 | PDOC ---
PROGRESS NOTES Subjective Subjective Patient feels much better today. Denies any dyspnea at this time. Objective Objective Vital Signs Date Time Temp Pulse Resp B/P Pulse Ox O2 Delivery O2 Flow Rate FiO2 08/18/16 11:00 97.7 98 20 144/61 97 Room Air 97.7 Intake and Output 08/18/16 07:00 Intake Total 888 ml Output Total 1540 ml Balance -652 ml Intake Oral 500 ml IV Total 388 ml Output Urine Total 1540 ml Physical Exam Physical Exam Lungs moving air better, no Rales. Less edema Assessment Assessment CHF improving. Will wean off the dobutamine today and if patient is doing well may go home in a.m. Problems Medical Problems: (1) CHF (congestive heart failure) Status: Acute (2) Dyspnea Status: Acute Comment Review of Relevant I have reviewed the following items chantal (where applicable) has been applied. Labs Laboratory Tests Test 08/18/16 04:20 Sodium Level 142mmol/L (136-145) Potassium Level 3.3mmol/L (3.5-5.1) Chloride Level 104mmol/L (98-107) Carbon Dioxide Level 30mmol/L (21-32) Anion Gap 8 (6-14) Blood Urea Nitrogen 15mg/dL (8-26) Creatinine 1.1mg/dL (0.7-1.3) Estimated GFR (Cockcroft-Gault) 63.3 Glucose Level 129mg/dL (70-99) Calcium Level 8.6mg/dL (8.5-10.1) Laboratory Tests Test 08/18/16 04:20 Sodium Level 142mmol/L (136-145) Potassium Level 3.3mmol/L (3.5-5.1) Chloride Level 104mmol/L (98-107) Carbon Dioxide Level 30mmol/L (21-32) Anion Gap 8 (6-14) Blood Urea Nitrogen 15mg/dL (8-26) Creatinine 1.1mg/dL (0.7-1.3) Estimated GFR (Cockcroft-Gault) 63.3 Glucose Level 129mg/dL (70-99) Calcium Level 8.6mg/dL (8.5-10.1) Medications Current Medications Furosemide 40 mg 40 mg 1X ONCE IVP Last administered on 08/16/16t 15:33; Start 08/16/16 at 15:15; Stop 08/16/16 at 15:16; Status DC Dobutamine HCl/ Dextrose 250 ml @ 0 mls/hr CONT PRN IV SEE I/O RECORD Last administered on 08/17/16 23:17; Start 08/16/16 at 17:15 Furosemide (Lasix) 40 mg Q12HR IVP ; Start 08/16/16 at 21:00; Stop 08/16/16 at 21: 00; Status DC Dorzolamide HCl (Trusopt) 1 drop BID OU Last administered on 08/18/16 08:48; Start 08/16/16 at 21:00 Furosemide (Lasix) 80 mg DAILY PO ; Start 08/20/16 at 09:00 Potassium Chloride (Klor-Con) 20 meq BIDWMEALS PO Last administered on 08:42; Start 08/16/16 at 18:00 Propafenone HCl (Rythmol) 75 mg BID PO Last administered on 08/18/16 08:48; Start 08/16/16 at 21:00 Latanoprost (Xalatan) 1 drop QHS OU Last administered on 08/17/16 21:08; Start 08/16/16 at 21:00 Brimonidine Tartrate (Alphagan) 1 drop BID OU Last administered on 08/18/16 08 :48; Start 08/16/16 at 21:00 Docusate Sodium (Colace) 200 mg DAILY PO Last administered on 08/18/16 08:43; Start 08/17/16 at 09:00 Furosemide (Lasix) 40 mg Q12HR IVP Last administered on 08/18/16 08:56; Start 08/17/16 at 09:00; Stop 08/19/16 at 09:00 Potassium Chloride (Klor-Con) 40 meq 1X ONCE PO ; Start 08/18/16 at 13:30; Stop 08/18/16 at 13:31; Status DC Active Scripts Active Reported Docusate Sodium 250 Mg Capsule 200 Mg PO DAILY Propafenone Hcl 150 Mg Tablet 75 Mg PO BID Furosemide 80 Mg Tablet 80 Mg PO DAILY Lumigan (Bimatoprost) 2.5 Ml Drops 1 Drop EACHEYE QHS Potassium Chloride 20 Meq Tab.er.prt 1 Tab PO BID Simvastatin 40 Mg Tablet 40 Mg PO HS Dorzolamide Hcl 10 Ml Drops 1 Drop EACHEYE BID Alphagan P (Brimonidine Tartrate) 5 Ml Drops 1 Drop EACHEYE BID Vitals/I & O Vital Sign - Last 24 Hours 08/17/16 08/17/16 08/17/16 08/17/16 15:00 19:30 19:45 21:09 Temp 97.8 97.7 97.8 97.7 Pulse 94 90 90 Resp 20 23 B/P 99/53 111/55 111/55 Pulse Ox 96 96 O2 Delivery Room Air Room Air Room Air 08/17/16 08/18/16 08/18/16 08/18/16 23:25 03:23 07:25 08:00 Temp 97.1 97.1 97.2 97.1 97.1 97.2 Pulse 82 91 92 Resp 22 22 B/P 125/57 114/57 108/60 Pulse Ox 95 97 97 O2 Delivery BiPAP/CPAP BiPAP/CPAP BiPAP/CPAP Room Air 08/18/16 08/18/16 08:48 11:00 Temp 97.7 97.7 Pulse 96 98 Resp 20 B/P 108/60 144/61 Pulse Ox 97 O2 Delivery Room Air Intake and Output 08/17/16 08/17/16 08/18/16 15:00 23:00 07:00 Intake Total 100 ml 394 ml 394 ml Output Total 240 ml 1200 ml 100 ml Balance -140 ml -806 ml 294 ml ANTONIA ROBERT MD Aug 18, 2016 14:03
[2016-08-18 15:00] VITALS: BP 139/79
[2016-08-18 19:10] VITALS: BP 139/79
[2016-08-18] MEDS: LATANOPROST 0.005% OPHTH SOLUTION 2.5ML BOTTLE. OU SCH (20:51)
[2016-08-18 23:25] VITALS: BP 107/69
[2016-08-19 03:30] VITALS: BP 110/52
[2016-08-19 07:35] VITALS: BP 109/66
[2016-08-19] MEDS: POTASSIUM CHLORIDE 20 MEQ TABLET.ER. PO SCH (07:59)
[2016-08-19] MEDS: DOCUSATE SODIUM 100 MG CAPSULE PO SCH (07:59)
[2016-08-19] MEDS: PROPAFENONE 150 MG TABLET. PO SCH (07:59)
[2016-08-19] MEDS: BRIMONIDINE 0.2% OPHTH SOLUTION 5ML BOTTLE. OU SCH (08:00)
[2016-08-19] MEDS: DORZOLAMIDE 2% OPHTH SOLUTION 10ML BOTTLE. OU SCH (08:00)
[2016-08-19] MEDS: FUROSEMIDE 40 MG/4 ML VIAL IVP SCH (08:00)
[2016-08-19 10:30] VITALS: BP 97/56
[2016-08-19] MEDS ORDERED: LISI2.5T PO (11:18)
[2016-08-19] MEDS ORDERED: CARV3.12 PO (11:18)
[2016-08-19] MEDS ORDERED: ASPI-482 PO (11:19)
--- NOTE | 2016-08-19 11:22 | PDOC ---
SUBJECTIVE Subjective feeling much better, off Dobutamine OBJECTIVE Vital Signs Vital Signs Date Time Temp Pulse Resp B/P Pulse Ox O2 Delivery O2 Flow Rate FiO2 08/19/16 08:00 Room Air 08/19/16 07:59 84 108/77 08/19/16 07:35 97.8 75 18 109/66 97 BiPAP/CPAP 97.8 08/19/16 03:30 97.7 77 22 110/52 95 BiPAP/CPAP 97.7 08/18/16 23:25 97.5 93 22 107/69 95 Room Air 97.5 08/18/16 20:53 89 139/79 08/18/16 20:15 Room Air 08/18/16 19:10 97.8 89 26 139/79 95 Room Air 97.8 08/18/16 15:00 97.9 98 20 139/79 98 Room Air 97.9 I & O Intake and Output 08/19/16 07:00 Intake Total 2685 ml Output Total 2800 ml Balance -115 ml Intake Oral 2640 ml IV Total 45 ml Output Urine Total 2800 ml PHYSICAL EXAM Physical Exam lungs clear heart RRR abd soft ext no edema ASSESSMENT/PLAN Assessment/Plan home today, low dose ARBEN/B B locker F/U out pt Problems: THERESA PEDRO MD Aug 19, 2016 11:22
--- NOTE | 2016-08-19 11:25 | PDOC3 ---
Discharge Summary* Date of Admission: Aug 16, 2016 Date of Discharge: Aug 19, 2016 Admitting Diagnosis Problems Medical Problems: (1) CHF (congestive heart failure) Status: Acute (2) Dyspnea Status: Acute Final Diagnosis 1. CHF with cardiomyopathy better 2. DM, 3.Dyslipidemia, 4. BPH, 5.depression. Problems Medical Problems: (1) CHF (congestive heart failure) Status: Acute (2) Dyspnea Status: Acute CONSULTS cardiology Dr. Mosley Procedures CXR Dobutamine drip Brief Hospital Course Mr. Omer is a 85 old [sex] who presented with [ ] Disposition/Orders: D/C to Home CONDITION AT DISCHARGE: Improved Diet: Cardiac Scheduled Aspirin (Aspir 81) 1 TAB PO DAILY Bimatoprost (Lumigan) 1 DROP EACHEYE QHS (Reported) Brimonidine Tartrate (Alphagan P) 1 DROP EACHEYE BID (Reported) Carvedilol (Coreg) 1 TAB PO BID Docusate Sodium (Docusate Sodium) 200 MG PO DAILY (Reported) Dorzolamide Hcl (Dorzolamide Hcl) 1 DROP EACHEYE BID (Reported) Furosemide (Furosemide) 80 MG PO DAILY (Reported) Lisinopril (Lisinopril) 1 TAB PO DAILY Potassium Chloride (Potassium Chloride) 1 TAB PO BID (Reported) Propafenone Hcl (Propafenone Hcl) 75 MG PO BID (Reported) Simvastatin (Simvastatin) 40 MG PO HS (Reported) Discontinued Medications Furosemide (Lasix) 3 TAB PO DAILYWBKFT (Reported) FOLLOW UP APPOINTMENT: 1 week Anthony Olivera Time Spent Total time spent with patient [] minutes for coordination of care, counseling, and education. THERESA PEDRO MD Aug 19, 2016 11:25
[2016-08-20] MEDS ORDERED: FUROSEMIDE 80 MG TABLET PO SCH (09:00)
== END 2016-08-19 12:55 | disposition home or self-care (01) | DRG 292 ==
LOC: ER 12:14 → 2 SOUTH 14:46
PROVIDERS: ADMIT Family Medicine; ATTEND Family Medicine
PROC: 5A09357 Assistance with Respiratory Ventilation, Less than 24 Consecutive Hours, Continuous Positive Airway Pressure (ICD-10-PCS; principal; 2016-08-17)
DX: I50.23 Acute on chronic systolic (congestive) heart failure (principal); I42.9 Cardiomyopathy, unspecified; E78.5 Hyperlipidemia, unspecified; F32.9 Major depressive disorder, single episode, unspecified; I25.10 Atherosclerotic heart disease of native coronary artery without angina pectoris; E78.00 Pure hypercholesterolemia, unspecified; E11.9 Type 2 diabetes mellitus without complications; I27.2 Other secondary pulmonary hypertension; I35.0 Nonrheumatic aortic (valve) stenosis; Z96.659 Presence of unspecified artificial knee joint; N40.0 Benign prostatic hyperplasia without lower urinary tract symptoms; Z95.0 Presence of cardiac pacemaker; Z90.49 Acquired absence of other specified parts of digestive tract
CPT/HCPCS: 36415; 71010; 80048; 83880; 84484; 85027; 93005; 93306; 96374; J1250; J1940; 99285-25